=== PATIENT | female | born 1930 | race Caucasian/White ===

== ENCOUNTER 2017-11-22 03:18 | Emergency (ER) | payer MEDICARE ==
[~2017-11-22] VITALS: Ht 152.4 cm; Wt 117.9 kg
[~2017-11-22 03:18] MED LIST: ATORVASTATIN CA40 MG PO; CIPRO500 MG PO; CLOPIDOGREL75 MG PO; COZAAR100 MG PO; DOXEPIN HCL25 MG PO; ECOTRIN325 MG PO; ELIQUIST PO; HYDROCHLOROTHIA25 MG PO; NEXIUM40 MG PO; NITROFURANTOIN100 MG PO; NITROGLYCERIN0.4 MG PO; OMEPRAZOLE40 MG PO; ULTRAM50 MG PO
[2017-11-22] MEDS ORDERED: ACETAMINOPHEN 325 MG TAB PO ONE (04:00)
[2017-11-22 04:44] VITALS: BP 127/91
== END 2017-11-22 05:00 | disposition home or self-care (01) ==
LOC: ER 03:18
DX: I10 Essential (primary) hypertension (principal)
CPT/HCPCS: 93005; 99283